=== PATIENT | female | born 1960 | race Caucasian/White ===

== ENCOUNTER 2019-05-08 06:57 | Inpatient (IN) | payer OTHER ==
[~2019-05-08] VITALS: Ht 170.2 cm; Wt 74.8 kg
[2019-05-08 06:57] VITALS: BP 142/93
--- NOTE | 2019-05-08 06:57 | NUR ---
TO BED # 11 BROUGHT IN BY AMBULANCE WITH C/O ABD PAIN, BLADDER INFECTION FOR 2 WEEKS.
[2019-05-08] MEDS ORDERED: NACL 0.9% 1,000 ML IV SCH (07:12)
[2019-05-08] MEDS ORDERED: NACL 0.9% 1,000 ML IV ONE (07:12)
--- NOTE | 2019-05-08 07:46 | NUR ---
angiography technologist at bedside.
[2019-05-08 07:55] LABS: BASOPHILS # (AUTO) 0.1 K/uL (0.00-0.22); BASOPHILS % (AUTO) 0.7 % (0.0-2.0); EOSINOPHILS % (AUTO) 0.2 % (0.0-4.0); HEMATOCRIT 45.7 % (36-48); HEMOGLOBIN 15.1 g/dL (12.0-16.0); LYMPHOCYTES # (AUTO) 2.3 K/uL (2.5-16.5); LYMPHOCYTES % (AUTO) 23.9 % (20.5-51.1); MEAN CORPUSCULAR HEMOGLOBIN 30 pg (27-31); MEAN CORPUSCULAR HGB CONC 33 g/dL (33-37); MEAN CORPUSCULAR VOLUME 90.9 fL (80-94); MONOCYTES # (AUTO) 0.6 K/uL (0.8-1.0); MONOCYTES % (AUTO) 6.3 % (1.7-9.3); NEUTROPHILS # (AUTO) 6.7 K/uL (1.8-7.7); NEUTROPHILS % (AUTO) 68.9 % (42.2-75.2); PLATELET COUNT (AUTO) 260 K/uL (140-450); RED BLOOD CELL COUNT(AUTO) 5.03 MIL/uL (4.20-5.40); WHITE BLOOD COUNT (AUTO) 9.8 K/uL (4.8-10.8)
--- NOTE | 2019-05-08 08:00 | NUR ---
Dr. Esparza is re-evaluating the patient at bedside.
--- NOTE | 2019-05-08 08:06 | NUR ---
Patient taken to CT scan via gurney by [facility].
--- NOTE | 2019-05-08 08:06 | NUR ---
58 Y/O F COMPLAINTS OF BURNING IN OUTER VAGINAL AREA FOR [address] KAYE WITH A VISUAL EXAM OF GENITAL/ AREA. THERE IS NO REDNESS, SWELLING OR OPEN SKIN ON THE OUTER VAGINAL AREA AND INNER THIGH AREA. LOWER ABDOMINAL PAIN, NON RADIATING.
[2019-05-08 08:07] LABS: APPEARANCE,URINE CLEAR (CLEAR); BILIRUBIN,URINE NEGATIVE (NEGATIVE); BLOOD, URINE TRACE-I (NEGATIVE); COLOR,URINE YELLOW (YELLOW); LEUKOCYTE ESTERASE ,URINE NEGATIVE (NEGATIVE); NITRITE, URINE NEGATIVE (NEGATIVE); UGLUCOSE NEGATIVE (NEGATIVE)
[2019-05-08 08:09] LABS: PROTHROMBIN TIME 9.5 secs (10.8-13.4)
--- NOTE | 2019-05-08 08:09 | NUR ---
Called and spoke to Nunu Pino to request medication list. Fax number provided.
[2019-05-08 08:20] LABS: ANION GAP 15.3 (8-16); CARBON DIOXIDE 25.7 mmol/L (21-32); CREATININE 0.7 mg/dL (0.6-1.3)
[2019-05-08 08:21] LABS: RBC,URINE 0-5 /HPF (0-5); WBC,URINE 0-5 /HPF (0-5)
--- NOTE | 2019-05-08 08:22 | NUR ---
US tech at bedside for exam.
[2019-05-08 08:24] LABS: TOTAL BILIRUBIN 0.7 mg/dL (0.0-1.0)
--- NOTE | 2019-05-08 08:32 | NUR ---
Note boone in EDM - 05/08/19 at 0835 by [facility] 58 Y/O F COMPLAINTS OF BURNING IN OUTER VAGINAL AREA FOR [address] KAYE WITH A VISUAL EXAM OF GENITAL/ AREA. THERE IS NO REDNESS, SWELLING OR OPEN SKIN ON THE OUTER VAGINAL AREA AND INNER THIGH AREA.
[2019-05-08] MEDS ORDERED: AMAN100S37 PO (08:45)
[2019-05-08] MEDS ORDERED: CARB1TER9 PO (08:46)
[2019-05-08] MEDS ORDERED: ZOLM5TAB PO (08:46)
[2019-05-08] MEDS ORDERED: diphenhydrAMINE 50 MG/ML VIAL IVP ONE (09:20)
[2019-05-08] MEDS ORDERED: MORPHINE SULFATE 4 MG/ML SYR IVP ONE (09:20)
[2019-05-08] MEDS: NACL 0.9% 1,000 ML IV SCH (09:22)
[2019-05-08] MEDS ORDERED: LORazepam 2 MG/ML VIAL IM/IVP PRN (09:25)
[2019-05-08] MEDS ORDERED: ACETAMINOPHEN 325 MG TAB PO PRN (09:25)
[2019-05-08] MEDS ORDERED: DOCUSATE SODIUM 100 MG GELCAP PO PRN (09:25)
[2019-05-08] MEDS ORDERED: ZOLPIDEM 5 MG TAB PO PRN (09:25)
[2019-05-08] MEDS ORDERED: FAMOTIDINE 20 MG/2 ML VIAL IVP ONE (09:25)
[2019-05-08] MEDS ORDERED: metroNIDAZOLE 500 MG/NS PREMIX 100 ML IV ONE (09:25)
[2019-05-08] MEDS ORDERED: DEXAMETHASONE 10 MG/ML VIAL IVP ONE (09:25)
[2019-05-08] MEDS ORDERED: ONDANSETRON 4 MG/2 ML VIAL IM/IVP PRN (09:25)
[2019-05-08] MEDS ORDERED: MORPHINE SULFATE 2 MG/ML SYR IVP PRN (09:25)
--- NOTE | 2019-05-08 10:30 | NUR ---
RECEIVED PT FROM ED NURSE, PT IS AWAKE, C/O URINARY FREQUENCY, PER ED NURSE PT HAS TO USE THE BEDPAN OFTEN. PT IS REQUESTING HER PARKINSON MEDICATION SOON POSSIBLE. PT IS ON ROOM AIR, SKIN INTACT, IV SITE ON THE R WRIST, 20 G, INFUSING FLAGYL. FALL PRECAUTIONS PUT IN PLACE. CALL LIGHT WITHIN REACH. Addendum: 05/08/19 at 1052 by Silvia Cook RN VS UPON ADMISSION: BP 161/92, O2 97, HR 109, TEMP 98.8, RR 16.
--- NOTE | 2019-05-08 10:44 | NUR ---
Patient will be admitted to care of DR. FIELDS. Admited to TELE. Will go to [facility]. Belongings list completed. Report to MIKE DUKE.
--- NOTE | 2019-05-08 10:51 | NUR ---
PT'S MOTHER IS AT BEDSIDE, TALKING WITH DR YOU AT THIS TIME.
[2019-05-08 11:00] VITALS: BP 161/92
[2019-05-08] MEDS ORDERED: ZOLMITRIPTAN 5 MG PO PRN ×2 (11:00→13:15)
[2019-05-08 11:06] LABS: MAGNESIUM 2.1 mg/dL (1.8-2.4); PHOSPHORUS 3.4 mg/dL (2.5-4.9); THYROID STIMULATING HORMONE 1.84 uIU/mL (0.34-3.74)
[2019-05-08 11:09] LABS: CHOL/HDL RATIO 2.6 (1-4.5)
[2019-05-08] MEDS ORDERED: CARBIDOPA/LEVODOPA 50/200 MG TABER PO SCH (11:12)
[2019-05-08] MEDS ORDERED: CARBIDOPA/LEVODOPA 25/100 MG 1 TAB PO SCH ×2 (11:21→13:00)
--- NOTE | 2019-05-08 11:31 | NUR ---
DC PLANNIN58 Y/O FEMALE FROM [facility], ADMITTED DUE TO BURNING ABDOMINAL PAIN X7 DAYS. INITIAL DIAGNOSIS OF ABDOMINAL PAIN. PAST MEDICAL HISTORY INCLUDE PARKINSON'S DISEASE, MIGRAINE HEADACHES AND UTI. BLOOD AND URINE CULTURES ARE PENDING. CT ABD SHOWED PROXIMAL JEJUNAL ENTERITIS, GALLBLADDER STONE AND/OR SLUDGE AND COLONIC DIVERTICULI. PELVIC US SHOWED ENDOMETRIAL HYPERPLASIA WITH FOCAL FLUID. NO CONSULTS AT THIS TIME. ON SINEMET 25/100MG. DC PLAN PENDING ON PATIENT'S RESPONSE TO TREATMENT. Addendum: 05/09/19 at 1407 by Renetta Colindres CM ON ROCEPHIN 1GM AND FLAGYL 500MG IV Q6H. OB CONSULT WITH DR. ALBERTO. MAXI WILL FOLLOW UP. Addendum: 05/10/19 at 1445 by Renetta Colindres CM CONTACTED [facility] AT [phone], ABLE TO SPEAK TO TY. SHE CONFIRMED THAT THE PATIENT IS THERE RESIDENT AND SHE RECEIVES HOME HEALTH SERVICES WITH [facility]. CONTACTED [facility] AT [phone], ABLE TO SPEAK TO VIRAL (CHARGING PLUG PLACER). SHE CONFIRMED THAT THE PATIENT WAS THEIR PATIENT PRIOR TO HOSPITAL ADMISSION FOR NURSING, PT AND OT SERVICES. SHE PROVIDED ME WITH THEIR FAX NUMBER [phone] TO FAX CLINICALS AND ORDER IF THE PHYSICIAN NEED TO CONTINUE THE SERVICES. DR. YOU AND CHARGE NURSE MADE AWARE.
[2019-05-08] MEDS ORDERED: HYDROmorphone 1 MG/ML AMP IVP PRN (11:45)
--- NOTE | 2019-05-08 12:27 | NUR ---
PER PHARMACY, WE DO NOT CARRY THE TWO MEDICATIONS THAT PT TAKES AT HER FACILITY - ZOLMITRIPTAN AND SINEMET ER. I CALLED PT'S MOTHER MARTHA TO ASK HER IF SHE COULD BRING PT'S MEDS FROM THE FACILITY. SHE SAID SHE WILL GO TRY TO OBTAIN THEM. DR YOU AWARE.
[2019-05-08] MEDS ORDERED: GABAPENTIN 300 MG CAP PO SCH (13:00)
[2019-05-08] MEDS ORDERED: CARBIDOPA PO SCH ×3 (13:04→16:00)
[2019-05-08] MEDS ORDERED: LEVODOPA PO SCH ×3 (13:04→16:00)
--- NOTE | 2019-05-08 13:30 | NUR ---
PT'S MOTHER BROUGHT PT'S SINEMET ER AND ZOLMITRIPTAN FROM PT'S FACILITY. MEDS TAKEN TO PHARMACY. DR AVELINO JACOBSEN.
--- NOTE | 2019-05-08 14:00 | NUR ---
PT'S BP IS 132/85 AT THIS TIME, PT NOT C/O ANY PAIN. DR YOU IS AWARE
--- NOTE | 2019-05-08 15:00 | NUR ---
CLARIFIED W/ PT HOW SHE TAKES HER SINEMET ER. SHE SAID SHE TAKES 6 TABS PER DAY, EVERY 3 HOURS. HER SINEMET ADMINISTRATION SCHEDULE IS FOLLOWS: 0600, 0900, 1200, 1500, 1800, AND 2100. MANUEL PHARMACIST IS AWARE, AND WILL CREATE AN " INDICATED" IMPLEMENTATION SPECIALIST PAYROLL ORDER FOR SINEMET ER. WILL ENDORSE TO THE HELP DESK SUPERVISOR NURSE.
[2019-05-08 16:00] VITALS: BP 131/73
[2019-05-08] MEDS: LEVODOPA PO SCH ×2 (18:25→21:01)
[2019-05-08] MEDS: CARBIDOPA PO SCH ×2 (18:25→21:01)
--- NOTE | 2019-05-08 19:18 | NUR ---
PT ENDORSED TO GENERATOR WORKER NURSE WILLIAM IN STABLE CONDITION. WILLIAM IS AWARE OF PT'S SINEMET ADMINISTRATION SCHEDULE.
--- NOTE | 2019-05-08 19:19 | NUR ---
RECEIVED BEDSIDE REPORT FROM DAY RN LEILANI. PT IS AAO X4 ON RA RESPIRATIONS ARE EQUAL AND UNLABORED. DR ALBERTO IS AT BEDSIDE. SKIN IS INTACT PER RN. ABLE TO MAKE NEEDS KNOWN. USES BEDPAN. IV ON R WRIST 20G NS @ 60M/H. PER DAY RN PT HOME MEDICATION SINEMET Q3H : 0600,9AM 12, 1500,1800 2100. POC DISCUSSED WITH PT. CALL LIGHT IS WITHIN REACH. WILL CONTINUE TO MONITOR
[2019-05-08 20:00] VITALS: BP 104/66
--- NOTE | 2019-05-08 21:01 | NUR ---
VSS, MARIA VICTORIA SINEMET GIVEN PER ORDERS. PT TOLERATED WELL. ALL NEEDS MET AT THIS TIME. CALL LIGHT IS WITHIN REACH.
[2019-05-08 21:16] LABS: BARBITURATE, URINE NEG. ng/ml (NEG <=200); BENZODIAZEPINE, URINE NEG. ng/mL (NEG <=200); CANNABINOID, URINE NEG. ng/mL (NEG <=50); COCAINE, URINE NEG. ng/mL (NEG <=300); OPIATE, URINE NEG. ng/mL (NEG <=2000); PHENCYCLIDINE SCREEN,URINE NEG. ng/mL (NEG <=25)
--- NOTE | 2019-05-08 22:17 | NUR ---
PT IS SLEEPING COMFORTABLY IN BED. CHEST RISE AND FALL. NO S/S OF DISTRESS
[2019-05-09] VITALS: BP 105/64
--- NOTE | 2019-05-09 | NUR ---
VITAL SIGNS ARE WITHIN NORMAL LIMITS. NO S/S OF DISTRESS. CALL LIGHT IS WITHIN REACH
[2019-05-09] MEDS: NACL 0.9% 1,000 ML IV SCH ×2 (01:25→17:45)
--- NOTE | 2019-05-09 01:30 | NUR ---
ASSISTED PT TO BEDPAN. ALL NEEDS MET AT THIS TIME. CALL LIGHT IS WITHIN REACH.
[2019-05-09 04:00] VITALS: BP 104/62
--- NOTE | 2019-05-09 04:00 | NUR ---
VITAL SIGNS ARE WITHIN NORMAL LIMITS. ALL NEEDS MET AT THIS TIME. CALL LIGHT IS WITHIN REACH. WILL CONTINUE TO MONITOR.
[2019-05-09] MEDS: CARBIDOPA PO SCH ×5 (06:20→20:21)
[2019-05-09] MEDS: HYDROcodone/APAP 5/325 MG 1 TAB TAB PO PRN (06:20)
[2019-05-09] MEDS: LEVODOPA PO SCH ×5 (06:20→20:21)
--- NOTE | 2019-05-09 07:27 | NUR ---
GAVE BEDSIDE REPORT TO DAY RN. PT ENDORSED IN STABLE CONDITION.
--- NOTE | 2019-05-09 07:41 | NUR ---
RECEIVED PT FROM SUPERVISOR BEET END NURSE FOR CONTINUITY OF CARE. PT IS AAOX3, COOPERATIVE BUT WITHDRAWN. PT IS DNR. PT ON RA SATING 97%. SKIN IS INTACT. PT BEDBOUND WITHOUT WALKER. BEDPAN USED FOR SAFETY. PT HAS IV IN THE RIGHT WRIST 20G INFUSING NS@60ML/HR. EXPLAINED POC TO PT AND PT VERBALIZED UNDERSTANDING. ALL NEEDS MET. WILL CONTINUE TO ROUND FREQUENTLY ON PT. BED IN LOW POSITION, CALL LIGHT WITHIN REACH. WILL ROUND FREQUENTLY ON PT.
[2019-05-09 08:00] VITALS: BP 124/81
[2019-05-09 08:01] LABS: BASOPHILS % (AUTO) 0.3 % (0.0-2.0); HEMATOCRIT 41.9 % (36-48); HEMOGLOBIN 13.7 g/dL (12.0-16.0); LYMPHOCYTES # (AUTO) 2.3 K/uL (2.5-16.5); LYMPHOCYTES % (AUTO) 21.7 % (20.5-51.1); MEAN CORPUSCULAR HEMOGLOBIN 30 pg (27-31); MEAN CORPUSCULAR HGB CONC 33 g/dL (33-37); MEAN CORPUSCULAR VOLUME 91.8 fL (80-94); MONOCYTES # (AUTO) 0.8 K/uL (0.8-1.0); MONOCYTES % (AUTO) 7.4 % (1.7-9.3); NEUTROPHILS # (AUTO) 7.4 K/uL (1.8-7.7); NEUTROPHILS % (AUTO) 70.6 % (42.2-75.2); PLATELET COUNT (AUTO) 228 K/uL (140-450); RED BLOOD CELL COUNT(AUTO) 4.57 MIL/uL (4.20-5.40); RED CELL DISTRIBUTION WIDTH 14.9 % (11.6-13.7); WHITE BLOOD COUNT (AUTO) 10.5 K/uL (4.8-10.8)
[2019-05-09 08:18] LABS: ANION GAP 15.1 (8-16); CARBON DIOXIDE 24.1 mmol/L (21-32); CREATININE 0.7 mg/dL (0.6-1.3); POTASSIUM 4.2 mmol/L (3.5-5.1)
--- NOTE | 2019-05-09 08:29 | NUR ---
PATIENT HAS BEEN SCREENED AND CATEGORIZED MODERATE NUTRITION RISK. PATIENT WILL BE SEEN WITHIN 3-5 DAYS OF ADMISSION. 05/10/19 05/12/[address]
[2019-05-09] MEDS: GABAPENTIN 300 MG CAP PO SCH ×2 (09:00→11:11)
--- NOTE | 2019-05-09 09:32 | NUR ---
ADMINISTERED MORNING MEDS TO PT. PT TOLERATED WELL. ALL NEEDS MET. WILL CONTINUE TO ROUND ON PT.
--- NOTE | 2019-05-09 11:42 | NUR ---
PT RESTING WITH FAMILY AT BEDSIDE. ALL NEEDS MET. WILL CONTINUE TO ROUND FREQUENTLY ON PT.
[2019-05-09 12:00] VITALS: BP 127/77
--- NOTE | 2019-05-09 13:29 | NUR ---
PT SLEEPING IN BED. ALL NEEDS MET. WILL CONTINUE TO ROUND FREQUENTLY ON PT, BED IN LOW POSITION, CALL LIGHT WITHIN REACH.
[2019-05-09] MEDS: metroNIDAZOLE 500 MG/NS PREMIX 100 ML IV SCH ×2 (13:38→20:20)
--- NOTE | 2019-05-09 15:53 | NUR ---
PT RESTING IN BED. ALL NEEDS MET. PT DENIES PAIN OR SOB. WILL CONTINUE TO ROUND FREQUENTLY ON PT. BED IN LOW POSITION, CALL LIGHT WITHIN REACH.
[2019-05-09 16:00] VITALS: BP 114/70
--- NOTE | 2019-05-09 17:52 | NUR ---
PT SLEEPING. ALL NEEDS MET.
[2019-05-09] MEDS ORDERED: MELATONIN 3 MG TAB PO PRN (18:10)
--- NOTE | 2019-05-09 19:43 | NUR ---
ENDORSED PT TO CARDIO CLINICIAN FOR CONTINUITY OF CARE. PT IN STABLE CONDITION AT THIS TIME.
--- NOTE | 2019-05-09 19:45 | NUR ---
RECEIVED REPORT FROM AM SHIFT NURSE DANE FOR CONTINUITY OF CARE. PATIENT ALERT AND ORIENTED X3. NO APPARENT DISTRESS NOTED. WITH PIV ON RIGHT WRIST 20G. WILL CONTINUE TO MONITOR.
[2019-05-09 20:00] VITALS: BP 99/58
--- NOTE | 2019-05-09 21:40 | NUR ---
ASSISTED PATIENT TO BEDPAN. NO APPARENT DISTRESS NOTED. BED ON LOW POSITION. BED ALARM ON. NO APPARENT DISTRESS NOTED. WILL CONTINUE TO MONITOR.
--- NOTE | 2019-05-09 23:40 | NUR ---
ASSISTED PATIENT TO BEDPAN. NO APPARENT DISTRESS NOTED. WILL CONTINUE TO MONITOR.
[2019-05-10] VITALS: BP 126/85
[2019-05-10] MEDS: CARBIDOPA PO SCH ×7 (00:21→20:41)
[2019-05-10] MEDS: LEVODOPA PO SCH ×7 (00:21→20:41)
--- NOTE | 2019-05-10 01:35 | NUR ---
PATIENT ASLEEP IN BED. VISIBLE CHEST RISE AND FALL NOTED. NO APPARENT DISTRESS NOTED. WILL CONTINUE TO MONITOR.
--- NOTE | 2019-05-10 03:30 | NUR ---
ASSISTED PATIENT TO BEDPAN. NO DISTRESS NOTED. WILL CONTINUE TO MONITOR.
[2019-05-10 04:00] VITALS: BP 96/55
[2019-05-10] MEDS: metroNIDAZOLE 500 MG/NS PREMIX 100 ML IV SCH ×3 (05:07→20:17)
--- NOTE | 2019-05-10 05:25 | NUR ---
PATIENT ASLEEP IN BED. NO APPARENT DISTRESS NOTED. WILL CONTINUE TO MONITOR.
--- NOTE | 2019-05-10 07:15 | NUR ---
ENDORSED TO AM SHIFT IN STABLE CONDITION FOR CONTINUITY OF CARE.
--- NOTE | 2019-05-10 07:46 | NUR ---
Received report from hourly shift manager nurse. Pt is in stable condition. Call light in reach.
[2019-05-10 08:00] VITALS: BP 111/70
[2019-05-10] MEDS ORDERED: MORPHINE SULFATE 2 MG/ML SYR IVP PRN (09:05)
[2019-05-10] MEDS: GABAPENTIN 300 MG CAP PO SCH ×3 (09:07→16:13)
--- NOTE | 2019-05-10 10:00 | NUR ---
Pt is resting in bed. Pt is in stable condition. Call light in reach.
[2019-05-10] MEDS ORDERED: HYDROcodone/APAP 5/325 MG 1 TAB TAB PO PRN (10:35)
[2019-05-10] MEDS: HYDROcodone/APAP 5/325 MG 1 TAB TAB PO PRN ×2 (10:35→18:03)
[2019-05-10] MEDS ORDERED: KETOROLAC 30 MG/ML VIAL IVP SCH (11:00)
[2019-05-10 11:23] VITALS: BP 111/70
--- NOTE | 2019-05-10 11:24 | NUR ---
CALLED [facility] TEL# [phone], SPOKE WITH MANUEL REGARDING PT'S DISCHARGE PLAN FOR TODAY, STATED THEIR NURSE WILL GIVE ME A CALL BACK FOR ETA. JEANNE-RN ASSIGNED MADE AWARE
[2019-05-10 12:00] VITALS: BP 116/76
--- NOTE | 2019-05-10 12:00 | NUR ---
Pt is resting in bed. Pt is in stable condition. Call light in reach.
--- NOTE | 2019-05-10 15:00 | NUR ---
Pt is resting in bed. Pt is in stable condition. Call light in reach.
[2019-05-10 16:00] VITALS: BP 142/93
--- NOTE | 2019-05-10 18:00 | NUR ---
Pt is resting in bed. Pt is in stable condition. Call light in reach.
--- NOTE | 2019-05-10 19:29 | NUR ---
Shift report given to hourly shift nurse. Pt is in stable condition. Call light in reach.
--- NOTE | 2019-05-10 19:30 | NUR ---
RECEIVED BEDSIDE REPORT FROM AM SHIFT RN JEANNE, FOR PT'S CONTINUITY OF CARE. PT IS LYING DOWN, AWAKE, ON ROOM AIR, HAS RIGHT HAND 22G WITH NS AT 10 ML/HR, DENIES ANY PAIN AT THIS TIME. PT DOES NOT WANT AN IV ACCESS, STATES IT MAKES HER PEE CONSTANTLY. PT TEACHING GIVEN REGARDING IMPORTANCE OF IV ACCESS, PT VERBALIZED UNDERSTANDING. EXPLAINED TO PT THE ELECTRICIAN WIRING ROUTINE, PT VERBALIZED UNDERSTANDING. FALL PRECAUTION IN PLACE. CALL LIGHT IS WITHIN REACH. WILL MONITOR PT THROUGHOUT THE SHIFT.
--- NOTE | 2019-05-10 20:17 | NUR ---
ADMINISTERED SCHEDULED IV ABX MEDICATION ORDERED. ASSISTED PT TO BEDPAN TO VOID. PT TOLERATED IT WELL. WILL CONTINUE TO MONITOR THE PT.
--- NOTE | 2019-05-10 20:41 | NUR ---
ADMINISTERED SCHEDULED PO MEDICATION ORDERED. PT KNOWLEDGEABLE REGARDING MEDICATION. PT TOLERATED IT WELL.
--- NOTE | 2019-05-10 22:00 | NUR ---
MADE ROUNDS. PT ASLEEP WITH NO SIGNS OF DISTRESS. NOTIFIED MD RESIDENT FOR PROCEDURE REQUESTED BY DR. ALBERTO, AND CONSENT NEEDED TO BE SIGNED. PER MD, WILL TALK TO PT IN A.M.
[2019-05-11] VITALS: BP 135/85
--- NOTE | 2019-05-11 00:05 | NUR ---
VS CHECKED AND CHARTED. ADMINISTERED SCHEDULED PO MEDICATION ORDERED. PT TOLERATED IT WELL. ASSISTED PT TO BEDPAN FOR VOIDING.
[2019-05-11] MEDS: LEVODOPA PO SCH (01:20)
[2019-05-11] MEDS: CARBIDOPA PO SCH (01:20)
--- NOTE | 2019-05-11 02:30 | NUR ---
PT WAS ASSISTED TO BEDPAN BY PUMP ASSEMBLER. DENIES ANY PAIN OR DISTRESS. WILL CONTINUE TO MONITOR PT
--- NOTE | 2019-05-11 04:42 | NUR ---
PT LYING DOWN ASLEEP WITH NO SIGNS OF DISTRESS. WILL CONTINUE TO MONITOR PT.
[2019-05-11] MEDS: metroNIDAZOLE 500 MG/NS PREMIX 100 ML IV SCH ×2 (05:41→12:44)
[2019-05-11] MEDS: HYDROcodone/APAP 5/325 MG 1 TAB TAB PO PRN ×2 (05:51→10:02)
--- NOTE | 2019-05-11 05:51 | NUR ---
ASSISTED PT TO BEDPAN. PT C/O LOWER ABD PAIN 12/27. ADMINISTERED PRN PO PAIN MEDICATION ORDERED. PT TEACHING GIVEN. WILL ENDORSE PT TO AM SHIFT RN FOR PT'S CONTINUITY OF CARE.
--- NOTE | 2019-05-11 06:29 | NUR ---
PT C/O INCREASING ABD PAIN 02/27, REQUESTED FOR ANOTHER PAIN MEDICATION. ADMINISTERED PRN IVP PAIN MEDICATION ORDERED. PT MADE COMFORTABLE, NEEDS ARE MET.WILL ENDORSE TO AM SHIFT RN FOR PT'S CONTINUITY OF CARE.
[2019-05-11 06:54] LABS: ANION GAP 13.3 (8-16); CARBON DIOXIDE 25.9 mmol/L (21-32); CREATININE 0.6 mg/dL (0.6-1.3); POTASSIUM 4.2 mmol/L (3.5-5.1)
--- NOTE | 2019-05-11 07:10 | NUR ---
RECEIVED PT FROM NIGHT NURSE. PT AWAKE IN BED AAOX3. PT DENIES PAIN AT THIS TIME. SKIN INTACT. IV SITE ASYMPTOMATIC AND PATENT. L HAND 22G TKO. RESPIRATIONS EVEN AND UNLABORED ON ROOM AIR. BED IN LOW POSITION. SAFETY MEASURES IN PLACE. CALL LIGHT WITHIN REACH. WILL CONTINUE TO MONITOR.
[2019-05-11 07:21] LABS: BASOPHILS % (AUTO) 0.4 % (0.0-2.0); EOSINOPHILS # (AUTO) 0.1 K/uL (0-0.4); EOSINOPHILS % (AUTO) 1.3 % (0.0-4.0); HEMOGLOBIN 14.4 g/dL (12.0-16.0); LYMPHOCYTES # (AUTO) 2.8 K/uL (2.5-16.5); LYMPHOCYTES % (AUTO) 36.7 % (20.5-51.1); MEAN CORPUSCULAR HEMOGLOBIN 30 pg (27-31); MEAN CORPUSCULAR HGB CONC 34 g/dL (33-37); MEAN CORPUSCULAR VOLUME 90.4 fL (80-94); MONOCYTES # (AUTO) 0.7 K/uL (0.8-1.0); MONOCYTES % (AUTO) 9.1 % (1.7-9.3); NEUTROPHILS % (AUTO) 52.5 % (42.2-75.2); PLATELET COUNT (AUTO) 212 K/uL (140-450); RED BLOOD CELL COUNT(AUTO) 4.76 MIL/uL (4.20-5.40); WHITE BLOOD COUNT (AUTO) 7.7 K/uL (4.8-10.8)
[2019-05-11 08:00] VITALS: BP 124/85
--- NOTE | 2019-05-11 08:42 | NUR ---
MEDICATIONS ADMINISTERED PER ORDER. PT TOLERATED WELL. LEVODOPA/CARBIDOPA ADMINISTERED AT THIS TIME. WILL CONTINUE TO MONITOR.
[2019-05-11] MEDS: GABAPENTIN 300 MG CAP PO SCH ×3 (08:46→16:47)
--- NOTE | 2019-05-11 09:29 | NUR ---
ATTEMPTED EKG BUT DUE TO INTERFERENCE FROM A COLOR TECHNICIAN UNABLE TO COMPLETE EKG WITHOUT ARTIFACT. NURSE AND OR NURSE MADE AWARE.
--- NOTE | 2019-05-11 11:14 | NUR ---
MEDICATIONS ADMINISTERED PER ORDER. PT TOLERATED WELL. NO DISTRESS NOTED. CALL LIGHT WITHIN REACH. WILL CONTINUE TO MONITOR.
--- NOTE | 2019-05-11 13:25 | NUR ---
PT TRANSPORTED OFF UNIT TO OR FOR HYSTEROSCOPY PROCEDURE
[2019-05-11] MEDS ORDERED: PROPOFOL 200 MG/20 ML VIAL IV ONE (13:27)
[2019-05-11] MEDS ORDERED: SEVOFLURANE 250 ML BTL INH ONE (13:27)
[2019-05-11] MEDS ORDERED: LIDOCAINE 2% 100 MG/5 ML SYR IVP ONE (13:27)
[2019-05-11] MEDS ORDERED: MIDAZOLAM 2 MG/2 ML VIAL ONE (13:34)
--- NOTE | 2019-05-11 13:44 | NUR ---
05/11/19 RD INITIAL ASSESSMENT COMPLETED PLEASE REFER TO NUTRITION ASSESSMENT UNDER CARE ACTIVITY FOR ESTIMATED NUTRITIONAL NEEDS. 1. CONTINUE NPO TOLERATED 2. IF/WHEN MEDICALLY APPROPRIATE TO BEGIN NUTRITION, CONSIDER ADVANCE DIET TOLERATED TO CARDIAC. 3. RD TO FOLLOW-UP 5-7 DAYS, LOW RISK XAVIER KAM, RD
[2019-05-11] MEDS ORDERED: ACET-9525 PO (13:58)
[2019-05-11] MEDS ORDERED: GABA-638 PO ×2 (13:58→17:00)
[2019-05-11] MEDS ORDERED: HYDROmorphone 1 MG/ML AMP IVP PRN (14:00)
[2019-05-11] MEDS ORDERED: ONDANSETRON 4 MG/2 ML VIAL IVP PRN (14:00)
[2019-05-11] MEDS ORDERED: LACT1CAP59 PO ×2 (14:04→17:01)
[2019-05-11] MEDS ORDERED: SULF-59 PO ×3 (14:04→19:12)
[2019-05-11] MEDS ORDERED: BUPIVACAINE-MPF 0.25% 30 ML VIAL INJ ONE (14:10)
[2019-05-11] MEDS ORDERED: CELE100C PO ×3 (14:21→19:12)
[2019-05-11] MEDS ORDERED: DOCU-299 PO ×3 (14:22→19:12)
[2019-05-11] MEDS: HYDROmorphone PFS 2 MG/ML SYR ONE ×2 (15:05→15:20)
--- NOTE | 2019-05-11 15:13 | NUR ---
ATTEMPTED TO CALL [facility] AT [phone] TIMES. NO ANSWER. CALLED TO AGAIN. WILTON CALLED SHE SAID TO CALL PATIENTS MOM FIRST. IF PATIENTS MOM IS UNABLE TO PICK HER UP THEN THEY WILL ARRANGE TRANSPORT.
--- NOTE | 2019-05-11 15:50 | NUR ---
PT RETURNS TO UNIT FROM OR IN STABLE CONDITION. VITAL SIGNS MONITORED AT THIS TIME. NO DISTRESS NOTED. PT DENIES PAIN. WILL CONTINUE TO MONITOR.
[2019-05-11 16:00] VITALS: BP 106/64
--- NOTE | 2019-05-11 16:51 | NUR ---
MEDICATIONS ADMINISTERED PER ORDER. PT TOLERATED WELL. NO DISTRESS NOTED. PT DENIES PAIN. CALL LIGHT WITHIN REACH. SAFETY MEASURES IN PLACE. WILL CONTINUE TO MONITOR.
--- NOTE | 2019-05-11 17:12 | NUR ---
CALLED [facility] AT THIS TIME AND GAVE REPORT TO WILTON TO TRANSFER PT TO THEIR FACILITY.
[2019-05-11 17:14] VITALS: BP 106/64
--- NOTE | 2019-05-11 19:10 | NUR ---
PT DISCHARGED AT THIS TIME. FOLLOW UP, DISCHARGE AND MEDICATION EDUCATION GIVEN, VERBALIZED UNDERSTANDING. DISCHARGE PAPERWORK SIGNED BY MOTHER OF PT. REFUSED PNA AND FLU VACCINE. SKIN INTACT. RESPIRATIONS EVEN AND UNLABORED ON ROOM AIR. VITAL SIGNS STABLE. PT DENIES PAIN. IV SITE REMOVED WITH MINIMAL BLOOD LOSS AND LUMEN INTACT. BELONGINGS VERIFIED AND RETURNED TO PT. ID BANDS REMOVED. PT ESCORTED OFF UNIT IN WHEELCHAIR AND LEFT IN PRIVATE VEHICLE ACCOMPANIED BY HER MOTHER AND FATHER, DISCHARGED TO [facility] IN [place].
[2019-05-11] MEDS ORDERED: GABA300C PO (19:12)
[2019-05-11] MEDS ORDERED: LACT-2 (19:12)
== END 2019-05-11 19:00 | DRG 744 ==
LOC: MED 06:57 → MTU 09:25
PROVIDERS: ADMIT General Practice; ATTEND General Practice
PROC: 0UDB8ZZ Extraction of Endometrium, Via Natural or Artificial Opening Endoscopic (ICD-10-PCS; principal; 2019-05-11 13:30)
DX: N87.9 Dysplasia of cervix uteri, unspecified (principal); R53.2 Functional quadriplegia; N39.0 Urinary tract infection, site not specified; G20 Parkinson's disease; N71.9 Inflammatory disease of uterus, unspecified; G43.909 Migraine, unspecified, not intractable, without status migrainosus; I10 Essential (primary) hypertension; E78.5 Hyperlipidemia, unspecified; K59.00 Constipation, unspecified; K57.30 Diverticulosis of large intestine without perforation or abscess without bleeding; K52.89 Other specified noninfective gastroenteritis and colitis
CPT/HCPCS: 36415; 71045; 76856; 80048; 80053; 80305; 81001; 82150; 83036; 83605; 83690; 83735; 84100; 84134; 84443; 84484; 85025; 85610; 85730; 87040; 87081; 87086; 87186; 88305; 93970; 96361; 96365; 96375; 97110; 97116; 97161-GP; 97530; 99285; J0696; J1050; J1100; J1170; J1200; J1885; J2001; J2250; J2270; J2704; J3490; J7030; J7060; Q0092

== ENCOUNTER 2019-05-13 06:35 | Inpatient (IN) | payer OTHER ==
[~2019-05-13] VITALS: Ht 170.2 cm; Wt 72.6 kg
[2019-05-13 06:35] VITALS: BP 150/98
[~2019-05-13 06:35] MED LIST: ACET-9525 PO; CARB1TER9 PO; CELE100C PO; DOCU-299 PO; GABA300C PO; LACT-2; SULF-59 PO; ZOLM5TAB PO
--- NOTE | 2019-05-13 06:35 | NUR ---
TO BED #04 BROUGHT IN [facility] FOR MEDICAL EVALUATION OF UTI, WHEEL CHAIR BOUND , NON AMBULATORY
--- NOTE | 2019-05-13 06:45 | NUR ---
PATIENT PRESENTS TO ED WITH BROUGHT IN BY [facility] FROM [facility] , FOR MEDICAL EVALUATION FOR UTI,ADMITTED LAST 05.08,AND D/C 05.11.2019, NON AMBULATORY. PT STATES BURNING SENSATION WHEN URINATING. PT ABLE TO USE BEDPAN. PT STATES DOES NOT LIKE LIVING AT [facility], PT STATES THEY TREAT HER BAD. DENIES N/V/D; SKIN IS PINK/WARM/DRY; AAOX4 ; LUNGS CLEAR BL; HR EVEN AND REGULAR; PT DENIES ANY FEVER, CP, SOB, OR COUGH AT THIS TIME; PATIENT STATES PAIN OF 0/10 AT THIS TIME; VSS; PATIENT POSITIONED FOR COMFORT; HOB ELEVATED; BEDRAILS UP X2; BED DOWN. ER MD MADE AWARE OF PT STATUS.
--- NOTE | 2019-05-13 07:10 | NUR ---
RECIEVED REPORT FROM PANKAJ MCKEON
[2019-05-13] MEDS ORDERED: NACL 0.9% 500 ML IV SCH (07:11)
--- NOTE | 2019-05-13 07:19 | NUR ---
a&p technician at bedside.
[2019-05-13] MEDS ORDERED: MELA3TAB56 PO (07:22)
[2019-05-13] MEDS ORDERED: DIPH25CA86 PO (07:22)
[2019-05-13] MEDS ORDERED: AMAN100S37 PO (07:22)
--- NOTE | 2019-05-13 07:24 | NUR ---
Dr. yLnn is evaluating the patient at bedside.
--- NOTE | 2019-05-13 07:35 | NUR ---
# 16 FR Najera catheter with 10 ml utilizing sterile technique. Immediate return of 100 ml CLEAR urine noted. Bedside drainage bag placed below level of bladder. Urine sample collected and sent to lab. Pt tolerated procedure well.
[2019-05-13] MEDS ORDERED: CARBIDOPA/LEVODOPA 50/200 MG TABER PO SCH (08:00)
[2019-05-13] MEDS ORDERED: HYDROmorphone PFS 2 MG/ML SYR IVP ONE (08:00)
[2019-05-13 08:19] LABS: BASOPHILS # (AUTO) 0.1 K/uL (0.00-0.22); BASOPHILS % (AUTO) 0.8 % (0.0-2.0); EOSINOPHILS % (AUTO) 0.4 % (0.0-4.0); HEMATOCRIT 45.3 % (36-48); HEMOGLOBIN 15.1 g/dL (12.0-16.0); LYMPHOCYTES # (AUTO) 1.6 K/uL (2.5-16.5); LYMPHOCYTES % (AUTO) 16.8 % (20.5-51.1); MEAN CORPUSCULAR HEMOGLOBIN 30 pg (27-31); MEAN CORPUSCULAR HGB CONC 33 g/dL (33-37); MEAN CORPUSCULAR VOLUME 90.4 fL (80-94); MONOCYTES # (AUTO) 0.6 K/uL (0.8-1.0); MONOCYTES % (AUTO) 6.6 % (1.7-9.3); NEUTROPHILS # (AUTO) 7.3 K/uL (1.8-7.7); NEUTROPHILS % (AUTO) 75.4 % (42.2-75.2); PLATELET COUNT (AUTO) 211 K/uL (140-450); RED BLOOD CELL COUNT(AUTO) 5.01 MIL/uL (4.20-5.40); RED CELL DISTRIBUTION WIDTH 14.6 % (11.6-13.7); WHITE BLOOD COUNT (AUTO) 9.7 K/uL (4.8-10.8)
[2019-05-13 08:29] LABS: ALBUMIN 4.2 g/dL (3.4-5.0); ANION GAP 15.8 (8-16); CARBON DIOXIDE 24.4 mmol/L (21-32); CREATININE 0.7 mg/dL (0.6-1.3); POTASSIUM 4.2 mmol/L (3.5-5.1); TOTAL BILIRUBIN 0.5 mg/dL (0.0-1.0)
[2019-05-13 08:46] LABS: BILIRUBIN,URINE NEGATIVE (NEGATIVE); BLOOD, URINE 3+ (NEGATIVE); COLOR,URINE YELLOW (YELLOW); LEUKOCYTE ESTERASE ,URINE NEGATIVE (NEGATIVE); NITRITE, URINE NEGATIVE (NEGATIVE); UGLUCOSE NEGATIVE (NEGATIVE)
[2019-05-13 08:52] LABS: APPEARANCE,URINE HAZY (CLEAR)
[2019-05-13 08:56] LABS: RBC,URINE 20-50 /HPF (0-5); WBC,URINE 0-5 /HPF (0-5)
[2019-05-13 09:04] LABS: PROTHROMBIN TIME 9.3 secs (10.8-13.4)
--- NOTE | 2019-05-13 09:29 | NUR ---
PATIENT OPENS EYES, PERRLA. NON VERBAL, ABLE TO BLINK ON COMMAND SQUEEZE BOTH HANDS WHEN ASKED. ER NOTIFIED AND STATES S/E FROM SINEMET GIVEN AT 0819.
--- NOTE | 2019-05-13 10:02 | NUR ---
PATIENT STATES SHE IS HAVING PAIN 6/10 IN HER "UTERUS". PATIENT REPOSITIONED IN BED. WILL CHECK WITH MD FOR MORE PAIN MEDICATION TO PRESCRIBE.
--- NOTE | 2019-05-13 10:05 | NUR ---
PER DR. ZOILA JUAREZ, PATIENT IS BEING ADMITTED. WILL FOLLOW ADMIT ORDERS FOR PAIN MANAGEMENT.
--- NOTE | 2019-05-13 10:26 | NUR ---
Dr. Solorzano is evaluating the patient at bedside.
[2019-05-13] MEDS ORDERED: DOCUSATE SODIUM 100 MG GELCAP PO PRN (10:45)
[2019-05-13] MEDS ORDERED: HYDROcodone/APAP 7.5/325 MG 1 TAB PO PRN (10:45)
[2019-05-13] MEDS ORDERED: ONDANSETRON 4 MG/2 ML VIAL IM/IVP PRN (10:45)
[2019-05-13] MEDS ORDERED: BISACODYL 5 MG TABEC PO PRN (10:45)
[2019-05-13] MEDS ORDERED: ACETAMINOPHEN 325 MG TAB PO PRN (10:45)
[2019-05-13] MEDS ORDERED: FAMOTIDINE 20 MG/2 ML VIAL IV PRN (10:45)
[2019-05-13 10:50] VITALS: BP 146/89
--- NOTE | 2019-05-13 10:50 | NUR ---
RECEIVED PATIENT/ REPORT FROM ER NURSE, PATIENT IN STABLE CONDITION. WILL COMPLETE ADMIT ASSESSMENT.
--- NOTE | 2019-05-13 11:01 | NUR ---
Patient will be admitted to care of DR AGUILAR. Admited to MED SURG. Will go to [id number]. Belongings list completed. Report to MIKE MUÑOZ.
[2019-05-13 11:28] LABS: BARBITURATE, URINE NEG. ng/ml (NEG <=200); BENZODIAZEPINE, URINE NEG. ng/mL (NEG <=200); CANNABINOID, URINE NEG. ng/mL (NEG <=50); COCAINE, URINE NEG. ng/mL (NEG <=300); OPIATE, URINE NEG. ng/mL (NEG <=2000); PHENCYCLIDINE SCREEN,URINE NEG. ng/mL (NEG <=25)
[2019-05-13 11:39] LABS: FREE T4 (FREE THYROXINE) 1.15 ng/dL (0.76-1.46); PHOSPHORUS 2.7 mg/dL (2.5-4.9); THYROID STIMULATING HORMONE 1.59 uIU/mL (0.34-3.74)
[2019-05-13] MEDS ORDERED: MORPHINE SULFATE 4 MG/ML SYR IVP PRN (11:50)
[2019-05-13 12:00] VITALS: BP 150/96
[2019-05-13] MEDS ORDERED: CELE100C PO (12:19)
[2019-05-13] MEDS ORDERED: GABA300C PO (12:19)
[2019-05-13] MEDS: CARBIDOPA/LEVODOPA 50/200 MG TABER PO SCH ×3 (12:52→20:00)
[2019-05-13] MEDS ORDERED: CELECOXIB 100 MG CAP PO PRN (13:10)
--- NOTE | 2019-05-13 13:15 | NUR ---
PATIENT BACK FROM CT [place], VITALS STABLE, PATIENT IN STABLE CONDITION. SISTER, ARTURO AT THE BEDSIDE. WILL CONTINUE TO MONITOR.
[2019-05-13] MEDS ORDERED: LISINOPRIL 10 MG TAB PO SCH (14:00)
[2019-05-13] MEDS: NACL 0.9% 1,000 ML IV SCH ×2 (14:10)
--- NOTE | 2019-05-13 14:26 | NUR ---
PATIENT AT THE BEDSIDE WITH SISTER, ARTURO, WATCHING TV CALM. NO DISTRESS NOTED. SCHEDULED MEDICATIONS GIVEN AT THIS TIME.
[2019-05-13 16:00] VITALS: BP 124/73
--- NOTE | 2019-05-13 17:12 | NUR ---
PATIENT SLEEPING IN BED, CALM, NO DISTRESS NOTED. WILL CONTINUE TO MONITOR.
--- NOTE | 2019-05-13 19:19 | NUR ---
ENDORSED TO ADMITTING OFFICE ESCORT NURSE. PATIENT IN STABLE CONDITION.
--- NOTE | 2019-05-13 19:20 | NUR ---
RECEIVED PT FROM DAY SHIFT NURSE PT AAOX2 ON BED REST BERNAL CATH DRAINING WELL YELLOW URINE, IV ON RT FA INFUSING WELL NOT DISTRESS NOTED INITIAL ASSESSMENT DONE
[2019-05-13 20:00] VITALS: BP 150/91
[2019-05-13] MEDS: MELATONIN 3 MG TAB PO SCH (21:00)
--- NOTE | 2019-05-13 22:00 | NUR ---
LINEN CHANGED, REPOSITIONED Q2H NOT DISTRESS NOTED BERNAL CATH IN PLACE DRAINING WELL YELLOW URINE
--- NOTE | 2019-05-14 | NUR ---
PT PULL OUT IV AND A NDEW ONE IS INSERTED ON LEFT WRIST GAUGE # 22
[2019-05-14] MEDS: CARBIDOPA/LEVODOPA 50/200 MG TABER PO SCH ×6 (00:48→20:57)
[2019-05-14] MEDS: HYDROcodone/APAP 7.5/325 MG 1 TAB PO PRN ×3 (00:56→20:57)
--- NOTE | 2019-05-14 03:07 | NUR ---
PT SLEEPING WELL AFTER PAIN MEDIC GIVEN
--- NOTE | 2019-05-14 06:08 | NUR ---
SPONGE BATH GIVEN LINENN CHANGED, REPOSITIONED, IV ON LEFT FA INFUSIGN WELL
[2019-05-14 06:19] LABS: BASOPHILS # (AUTO) 0.1 K/uL (0.00-0.22); BASOPHILS % (AUTO) 0.7 % (0.0-2.0); EOSINOPHILS # (AUTO) 0.1 K/uL (0-0.4); EOSINOPHILS % (AUTO) 0.7 % (0.0-4.0); HEMOGLOBIN 13.9 g/dL (12.0-16.0); LYMPHOCYTES # (AUTO) 3.2 K/uL (2.5-16.5); LYMPHOCYTES % (AUTO) 33.1 % (20.5-51.1); MEAN CORPUSCULAR HEMOGLOBIN 30 pg (27-31); MEAN CORPUSCULAR HGB CONC 33 g/dL (33-37); MEAN CORPUSCULAR VOLUME 91.5 fL (80-94); MONOCYTES # (AUTO) 0.7 K/uL (0.8-1.0); MONOCYTES % (AUTO) 7.6 % (1.7-9.3); NEUTROPHILS # (AUTO) 5.5 K/uL (1.8-7.7); NEUTROPHILS % (AUTO) 57.9 % (42.2-75.2); PLATELET COUNT (AUTO) 233 K/uL (140-450); RED BLOOD CELL COUNT(AUTO) 4.59 MIL/uL (4.20-5.40); RED CELL DISTRIBUTION WIDTH 14.9 % (11.6-13.7); WHITE BLOOD COUNT (AUTO) 9.6 K/uL (4.8-10.8)
[2019-05-14 07:06] LABS: ANION GAP 12.9 (8-16); CARBON DIOXIDE 26.2 mmol/L (21-32); CREATININE 0.7 mg/dL (0.6-1.3); POTASSIUM 4.1 mmol/L (3.5-5.1)
--- NOTE | 2019-05-14 07:10 | NUR ---
RECEIVED REPORT FROM NIGHT RN. PATIENT IS CURRENTLY LAYING IN BED, NO SIGNS OF RESP DISTRESS. PATIENT IS DNR, NKA. AAOX2, ON ROOM AIR. PATIENT IS A FALL RISK- WRISTBAND APPLIED, SIGN AT DOOR, YELLOW SOCKS APPLIED. IV TO LEFT FA 22G. PATIENT HAS A F/C PRESENT, DRAINING ADEQUATELY. WILL CONTINUE WITH PLAN OF CARE FOR THE DAY.
[2019-05-14 07:11] LABS: MAGNESIUM 1.9 mg/dL (1.8-2.4); PHOSPHORUS 3.3 mg/dL (2.5-4.9)
[2019-05-14 08:00] VITALS: BP 106/60
[2019-05-14] MEDS: LACTOBACILLUS RHAMNOSUS GG 1 EACH CAP PO SCH (08:17)
[2019-05-14] MEDS: LISINOPRIL 10 MG TAB PO SCH (08:20)
--- NOTE | 2019-05-14 08:21 | NUR ---
ADMINISTERED MORNING MEDICATION. PATIENT TOLERATED WELL. DID NOT ADMINISTER BP MEDICATION FOR BP THIS MORNING OF 106/60
--- NOTE | 2019-05-14 08:28 | NUR ---
PATIENT HAS BEEN SCREENED AND CATEGORIZED HIGH NUTRITION RISK. PATIENT WILL BE SEEN WITHIN 1-2 DAYS OF ADMISSION. 05/14/[address]
[2019-05-14] MEDS: NACL 0.9% 1,000 ML IV SCH ×2 (08:44→19:20)
--- NOTE | 2019-05-14 10:29 | NUR ---
ADMINISTERED MEDICATION FOR PAIN TO GROIN AREA. WILL RE-ASSESS. NO FURTHER COMPLAINTS AT THIS TIME
--- NOTE | 2019-05-14 12:22 | NUR ---
* ST NOTE * Pt seen at bedside. Pt alert, cooperative and engaged throughout session, reporting no c/o pain at this time. Bedside dysphagia and oral mechanism exams completed. See evaluation report for further details. Pt tolerating 4/4 alternating Po trials of regular solid saltine crackers as well as 5/5 alternating PO trials of thin liquid apple juice via a straw, all w/o s/s of aspiration or choking. Pt exhibiting occasional residue on lingua after PO intake of regular solids at this time. Pt education completed re: aspiration precautions and safe swallow compensatory strategies pt could utilize to aid w/swallow function, w/pt demonstrating 100% follow through as trained by clinician. Clinician inquiring as to whether pt would prefer meals to be cut for her in order to aid w/feeding & PO intake, w/pt agreeable. It is thus recommended pt's PO diet consistency be modified to mechanical soft-chopped textures w/thin liquids for all meals, w/pt verbalizing understanding and agreement. No further ST follow up recommended at this time. Pt and caregiver/Nsg Pravin education completed re: results of evaluation; benefits of abiding by aspiration precautions and recommended PO diet consistency; and prognosis for improvement; w/pt and caregiver/Nsg Pravin verbalizing understanding and agreement w/clinician's recommendations. Recommend: - PO DIET CONSISTENCY OF MECHANICAL SOFT-CHOPPED TEXTURES W/THIN LIQUIDS for all meals as is more convenient for resident - MAINTAIN STRICT ASPIRATION PRECAUTIONS DURING PT'S PO INTAKE 2/2 TO PARKINSON'S DISEASE - Pt requires assistance w/feeding - Feeder to REMIND/CUE PT TO SIT UP AT 80-90 DEGREE ANGLE DURING PO INTAKE; EAT/DRINK SLOWLY; ALTERNATE BTWN SOLIDS & LIQUIDS; AND TAKE SMALL BITES/SIPS No further ST follow up recommended at this time. NOMS Level 2 Time In/Out 11:45 - 12:15
--- NOTE | 2019-05-14 13:03 | NUR ---
05/14/19 RD INITIAL ASSESSMENT COMPLETED PLEASE REFER TO NUTRITION ASSESSMENT UNDER CARE ACTIVITY FOR ESTIMATED NUTRITIONAL NEEDS. 1. RECOMMEND MECHANICAL SOFT, 2GM NA DIET TOLERATED 2. RD PROVIDED NUTRITION EDUCATION ON HYPERTENSION. PT ACCEPTED 3. ENCOURAGED INCREASING PO INTAKE 4. PROVIDE FEEDING ASSISTANCE WITH MEALS 5. RD TO FOLLOW-UP 3-5 DAYS, MODERATE RISK XAVIER KAM RD
--- NOTE | 2019-05-14 14:00 | NUR ---
SPOKE TO PATIENTS SISTER ARTURO VIA TELEPHONE AND GAVE BRIEF UPDATES ABOUT PATIENTS PLAN OF CARE
--- NOTE | 2019-05-14 15:56 | NUR ---
ADMINISTERED PM MEDICATION. PATIENT IS RESTING IN BED, NO SIGNS OF DISTRESS. NO COMPLAINTS AT THIS TIME. DENIES PAIN
[2019-05-14 16:00] VITALS: BP 139/89
--- NOTE | 2019-05-14 16:39 | NUR ---
[employer] Nurse Note: [facility] Patient: Ana Contreras : 1960 Age/Sex: 58/F Unit#: [id number] Room/Bed: 121/B User: Steven GORDON Date: 05/14/19 16:33 Type: CM: Discharge Planning Basic Screen: Yes High Risk DC Screen Yes Name: MARTHA GONZALEZ [place] Relationship: MOTHER Pre-Admission Living Arrangements: Other Other: [facility] Prior ADL Needs Assistance Current Home Health Name/Tel: [facility] Current Name/Tel: [facility] Current Hospice Name/Tel: N/A Current Dialysis Name/Tel: N/A Healthcare Decision Maker: Next of Kin Other: MARTHA GONZALEZ Advance Directive No Physician Orders for Life Sustaining Treatment Form No Patient/Family Have Educational Needs No Discipline: Case Mgt/Social Svcs Tentative Discharge Plan/Destination: No Needs Identified Will require assistance post discharge: No Referred to Pole Peeling Machine Operator: No Tentative Discharge Plan Summary: Patient is a 58-year-old female admitted for UTI. Patient has PMHX of hypertension and Parkinson's. Patient was admitted from [facility]. GABRIEL contacted [facility] Director [phone]. Sandra reported that patient has a cognitive impairment. Sandra stated that a meeting conference will be held with patient's family regarding a discussion of if [facility] will be able to accommodate all of patient's needs. GABRIEL will follow up as needed. Signature: MELISA Vang Date: May 14, 2019 Time: 16:37
--- NOTE | 2019-05-14 19:00 | NUR ---
;RECEIVED PT FROM CARMELLA RN PT AAOX2 COOPERATIVE TO FOLLOW COMMANDS IV ON LEFT FA INFUSING WELL, ; BERNAL CATH DRAINING WELL YELLOW URINE, PT REPOSITIONE D INITIAL ASSESSMENT DONE
[2019-05-14 20:00] VITALS: BP 119/79
[2019-05-14] MEDS: MELATONIN 3 MG TAB PO SCH (20:56)
--- NOTE | 2019-05-14 22:00 | NUR ---
AFTER PAIN MEDIC GIVEN PT IS SLEEPING WELL NOT DISTRESS NOTED
[2019-05-15] VITALS: BP 106/62
[2019-05-15] MEDS: CARBIDOPA/LEVODOPA 50/200 MG TABER PO SCH ×8 (00:12→23:06)
--- NOTE | 2019-05-15 02:16 | NUR ---
PT ON CLOSE MONITORING REMAIN STABLE NOT DISTRESS NOTED ON BERNAL CATH DRAINING WELL , PT HAS BEEN REPOSITIONED Q2H
[2019-05-15 05:34] LABS: BASOPHILS # (AUTO) 0.1 K/uL (0.00-0.22); BASOPHILS % (AUTO) 1.4 % (0.0-2.0); EOSINOPHILS # (AUTO) 0.3 K/uL (0-0.4); EOSINOPHILS % (AUTO) 3.2 % (0.0-4.0); HEMATOCRIT 40.7 % (36-48); HEMOGLOBIN 13.5 g/dL (12.0-16.0); LYMPHOCYTES # (AUTO) 2.7 K/uL (2.5-16.5); LYMPHOCYTES % (AUTO) 30.6 % (20.5-51.1); MEAN CORPUSCULAR HEMOGLOBIN 30 pg (27-31); MEAN CORPUSCULAR HGB CONC 33 g/dL (33-37); MEAN CORPUSCULAR VOLUME 91.9 fL (80-94); MONOCYTES # (AUTO) 0.8 K/uL (0.8-1.0); MONOCYTES % (AUTO) 9.6 % (1.7-9.3); NEUTROPHILS # (AUTO) 4.8 K/uL (1.8-7.7); NEUTROPHILS % (AUTO) 55.2 % (42.2-75.2); PLATELET COUNT (AUTO) 214 K/uL (140-450); RED BLOOD CELL COUNT(AUTO) 4.43 MIL/uL (4.20-5.40); RED CELL DISTRIBUTION WIDTH 15.1 % (11.6-13.7); WHITE BLOOD COUNT (AUTO) 8.7 K/uL (4.8-10.8)
--- NOTE | 2019-05-15 05:47 | NUR ---
sponge bath given linen changed, ; repositioned not distress noted
[2019-05-15] MEDS: NACL 0.9% 1,000 ML IV SCH ×3 (06:16→20:26)
--- NOTE | 2019-05-15 06:28 | NUR ---
PT RESTING ON BED NOT DISTRESS NOTED PT WILL BE ENDORSED TO DAY SHIFT NURSE FOR CONTINUE OF CARE
[2019-05-15 06:55] LABS: ANION GAP 12.7 (8-16); CARBON DIOXIDE 27.4 mmol/L (21-32); POTASSIUM 4.1 mmol/L (3.5-5.1)
[2019-05-15 06:56] LABS: CREATININE 0.6 mg/dL (0.6-1.3)
--- NOTE | 2019-05-15 07:28 | NUR ---
REPORT RECEIVED FROM [employer]RARIAN NURSE FOR CONTINUATION OF CARE, DANICA IS SLEEPING IN BED NO DISTRESS NOTED AT THIS TIME. SKIN INTACT, IV PATENT AND FLUSHED WITH NS. WILL CONTINUE TO MONITOR.
[2019-05-15 08:00] VITALS: BP 118/78
[2019-05-15] MEDS: LACTOBACILLUS RHAMNOSUS GG 1 EACH CAP PO SCH (08:16)
[2019-05-15] MEDS: LISINOPRIL 10 MG TAB PO SCH (08:17)
--- NOTE | 2019-05-15 09:30 | NUR ---
PATIENT IS LYING IN BED STARING OUT INTO THE WINDOW, MUMBLED SPEECH, OCCASIONAL CONFUSION, BLANK STARE. PATIENT OBSERVED TO HAVE A BOWEL MOVEMENT. OBSERVED CHEST RISE AND FALL. WILL CONTINUE TO MONITOR. PLAN FOR DISPO TO SNF AT DISCHARGE.
--- NOTE | 2019-05-15 12:00 | NUR ---
PATIENT IS ACCOMPANIED BY HER SISTER AT BEDSIDE, PATIENT PRESENTS IRRITABLE WHEN ALONE, TALKING TO HERSELF OR SOMEONE WHO IS NOT THERE. MEDICATIONS ADMINISTERED, TOLERATED WELL. SHE DEESCALATES WHEN STAFF TALKS WITH HER. SHE IS ENCOURAGED TO EAT HER LUNCH AND EDUCATED ON THE IMPORTANCE OF ADEQUATE NUTRITION. WILL CONTINUE TO MONITOR.
[2019-05-15] MEDS ORDERED: COMMUNICATION ORDER MC PRN (13:35)
[2019-05-15] MEDS ORDERED: NUPLAZID 34 MG PO SCH (14:00)
--- NOTE | 2019-05-15 14:00 | NUR ---
PATIENT IN BED, REPOSITIONED. NO SIGNS OF DISTRESS NOTED AT THIS TIME. OBSERVED CHEST RISE AND FALL. WILL CONTINUE TO MONITOR FOR SAFETY.
[2019-05-15] MEDS: NUPLAZID 34 MG PO SCH (14:14)
[2019-05-15] MEDS ORDERED: LORazepam 2 MG/ML VIAL ONE (15:15)
[2019-05-15] MEDS: LORazepam 2 MG/ML VIAL IM/IVP PRN (15:16)
--- NOTE | 2019-05-15 15:18 | NUR ---
ATIVAN 1MG ADMINISTERED PER ORDER. UNABLE TO PULL FROM PYXIS EVEN THOUGH ITS IN THE eMAR. PT SCREAMING HALLUCINATING THINKS SHES DYING INFORMED DR. YOU AT BEDSIDE
--- NOTE | 2019-05-15 15:20 | NUR ---
DC [age]ANN[age] YRS OLD FEMALE WAS ADMITTED FROM [facility] WITH A DX OF HEMATURIA, LETHARGIC AND GENERALIZE WEAKNESS. 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 CT OF HEAD ORDERED, INITIATED FALL PRECAUTION, PT AND ST EVALUATION , PROGRAM CONTROL ANALYST CONSULT WITH DR ALBERTO FOR UTERUS PAIN AND PSYCH CONSULT WITH DR ODONNELL FOR ANXIETY . DC PLAN TO GO TO SNF PER FAMILY CHOICE FOR PHYSICAL THERAPY. CONTACTED [facility] VISITED PATIENT AND CONFIRMING THAT HE ACCEPTED PT. CM TO FOLLOW Addendum: 05/16/19 at 1157 by Ginna Avila CM DC PLANNING PT IS GOING TO [facility] ROOM [address] ARRANGED TRANSPORT WITH [facility] IN[employer] TIME 2PM NOTIFIED JACOBO MCKEON
[2019-05-15 16:00] VITALS: BP 111/70
[2019-05-15] MEDS ORDERED: diphenhydrAMINE 50 MG/ML VIAL IVP SCH (16:00)
[2019-05-15] MEDS ORDERED: QUEtiapine FUMARATE 25 MG TAB PO PRN (16:45)
--- NOTE | 2019-05-15 17:07 | NUR ---
DANICA TOLERATED A 1X DOSE OF BENADRYL 25 MG IVP. SHE IS RESTING IN BED, BEHAVIOR IS CALM, CONTINUES TO MAKE INCOHERENT STATEMENTS. WILL CONTINUE TO MONITOR.
--- NOTE | 2019-05-15 19:30 | NUR ---
ENDORSED PT TO PM RN PT APPEARS STABLE AND IN NO APPARENT DISTRESS, ALL SAFETY MEASURES ARE IN PLACE
--- NOTE | 2019-05-15 19:30 | NUR ---
ASSUMED CARE OF PATIENT, AWAKE, EATING DINNER. FAMILY AT BEDSIDE. NO DISTRESS. NO COMPLAINS. CALL LIGHT WITHIN REACH.
--- NOTE | 2019-05-15 20:00 | NUR ---
CARE BOARD UPDATED. PERICARE DONE. REPOSITIONED AND COMPLETE BED CHANGE ASSISTED WITH SECURITY CONTROL ROOM OFFICER. CALL LIGHT WITHIN REACH.
[2019-05-15] MEDS: MELATONIN 3 MG TAB PO SCH (20:26)
[2019-05-15] MEDS ORDERED: QUEtiapine FUMARATE 25 MG TAB PO SCH (21:00)
[2019-05-16 00:46] VITALS: BP 110/68
--- NOTE | 2019-05-16 00:47 | NUR ---
AWAKE. BM NOTED, PERICARE BY COMPUTERIZED MACHINE FABRIC CUTTER. REPOSITIONED. VITAL SIGNS STABLE. CALL LIGHT WITHIN REACH. NO COMPLAINS.
[2019-05-16] MEDS: CARBIDOPA/LEVODOPA 50/200 MG TABER PO SCH ×4 (02:17→12:24)
[2019-05-16] MEDS ORDERED: LORazepam 2 MG/ML VIAL ONE (04:21)
[2019-05-16] MEDS: LORazepam 2 MG/ML VIAL IM/IVP PRN (04:26)
--- NOTE | 2019-05-16 04:45 | NUR ---
PERICARE DONE. REPOSITIONED. GETTING AGITATED. ATTEMPTING TO PULL OUT IV AND BERNAL. SNACK GIVEN. ATIVAN GIVEN IV ORDERED. CALL LIGHT WITHIN REACH.
--- NOTE | 2019-05-16 07:05 | NUR ---
RECEIVED PT FROM NIGHT NURSE. PT AAOX3, DENIES PAIN, NO DISTRESS NOTED. RESPIRATIONS EVEN AND UNLABORED ON ROOM AIR, CLEAR BREATH SOUNDS. IV IN PLACE ASYMPTOMATIC AND PATENT INFUSING PER ORDER IN L A 20G. SKIN INTACT. FOLLEY IN PLACE. CALL LIGHT WITHIN REACH. SAFETY MEASURES IN PLACE. BED IN LOW POSITION. WILL CONTINUE TO MONITOR.
[2019-05-16 07:10] LABS: BASOPHILS % (AUTO) 0.5 % (0.0-2.0); EOSINOPHILS # (AUTO) 0.2 K/uL (0-0.4); EOSINOPHILS % (AUTO) 2.5 % (0.0-4.0); HEMOGLOBIN 13.9 g/dL (12.0-16.0); LYMPHOCYTES # (AUTO) 2.7 K/uL (2.5-16.5); LYMPHOCYTES % (AUTO) 29.3 % (20.5-51.1); MEAN CORPUSCULAR HEMOGLOBIN 31 pg (27-31); MEAN CORPUSCULAR HGB CONC 33 g/dL (33-37); MEAN CORPUSCULAR VOLUME 92.1 fL (80-94); MONOCYTES # (AUTO) 0.8 K/uL (0.8-1.0); MONOCYTES % (AUTO) 8.1 % (1.7-9.3); NEUTROPHILS # (AUTO) 5.6 K/uL (1.8-7.7); NEUTROPHILS % (AUTO) 59.6 % (42.2-75.2); PLATELET COUNT (AUTO) 196 K/uL (140-450); RED BLOOD CELL COUNT(AUTO) 4.56 MIL/uL (4.20-5.40); RED CELL DISTRIBUTION WIDTH 15.1 % (11.6-13.7); WHITE BLOOD COUNT (AUTO) 9.3 K/uL (4.8-10.8)
[2019-05-16 07:22] LABS: ANION GAP 14.1 (8-16); CARBON DIOXIDE 24.5 mmol/L (21-32); CREATININE 0.6 mg/dL (0.6-1.3); POTASSIUM 3.6 mmol/L (3.5-5.1)
--- NOTE | 2019-05-16 07:27 | NUR ---
ENDORSED CARE AT BEDSIDE WITH ASYA MCKEON, PATIENT IN STABLE CONDITION.
[2019-05-16 08:00] VITALS: BP 119/70
[2019-05-16] MEDS: LACTOBACILLUS RHAMNOSUS GG 1 EACH CAP PO SCH (08:28)
[2019-05-16] MEDS: NUPLAZID 34 MG PO SCH (08:29)
[2019-05-16] MEDS: LISINOPRIL 10 MG TAB PO SCH (08:29)
--- NOTE | 2019-05-16 08:33 | NUR ---
MEDICATIONS ADMINISTERED PER ORDER. PT TOLERATED WELL. NO DISTRESS NOTED. SAFETY MEASURES IN PLACE. WILL CONTINUE TO MONITOR.
[2019-05-16] MEDS ORDERED: [UNRECOGNIZED DRUG - OTHER] PO (10:03)
[2019-05-16] MEDS ORDERED: CARB1TER9 PO (10:03)
[2019-05-16] MEDS ORDERED: QUET25TA46 PO ×2 (10:03)
--- NOTE | 2019-05-16 10:41 | NUR ---
PT REPOSITIONED AND COVERED WITH WARM BLANKET. DENIES PAIN. NO DISTRESS NOTED. SAFETY MEASURES IN PLACE. WILL CONTINUE TO MONITOR.
[2019-05-16] MEDS: NACL 0.9% 1,000 ML IV SCH (11:20)
--- NOTE | 2019-05-16 12:29 | NUR ---
MEDICATIONS ADMINISTERED PER ORDER. PT TOLERATED WELL. NO DISTRESS NOTED. WILL CONTINUE TO MONITOR.
[2019-05-16 13:05] VITALS: BP 121/70
[2019-05-16] MEDS ORDERED: ZOLM5TAB PO (14:07)
--- NOTE | 2019-05-16 14:15 | NUR ---
PT DISCHARGED AT THIS TIME. FOLLOWUP, DISCHARGE AND MEDICATION TEACHING GIVEN TO MUKESH, LUIZ SISTER OVER THE PHONE. VERBALIZED UNDERSTANDING. DISCHARGE PAPERWORK SIGNED BY PT. IV SITE REMOVED WITH MINIMAL BLOOD LOSS AND LUMEN INTACT. ID BANDS REMOVED. BELONGINGS VERIFIED AND RETURNED TO PT. RESPIRATIONS EVEN AND UNLABORED ON ROOM AIR, CLEAR BREATH SOUNDS. DENIES PAIN, NO DISTRESS NOTED. SKIN INTACT. VITAL SIGNS STABLE. PT REFUSED PNA AND FLU VACCINE. PT TRANSFERRED TO [facility]IA [facility].
== END 2019-05-16 14:15 | DRG 73 ==
LOC: MED 06:35 → MTU 10:12 → UNDODISIN 10:20
PROVIDERS: ADMIT General Practice; ATTEND General Practice
DX: G90.8 Other disorders of autonomic nervous system (principal); R53.2 Functional quadriplegia; E44.0 Moderate protein-calorie malnutrition; N39.0 Urinary tract infection, site not specified; I10 Essential (primary) hypertension; G20 Parkinson's disease; Z66 Do not resuscitate; E78.5 Hyperlipidemia, unspecified; F29 Unspecified psychosis not due to a substance or known physiological condition; G30.9 Alzheimer's disease, unspecified; F02.80 Dementia in other diseases classified elsewhere, unspecified severity, without behavioral disturbance, psychotic disturbance, mood disturbance, and anxiety; Z68.25 Body mass index [BMI] 25.0-25.9, adult; Z98.51 Tubal ligation status; Z82.61 Family history of arthritis
CPT/HCPCS: 36415; 51702; 70450; 71045; 76770; 80048; 80053; 80305; 81001; 82140; 82150; 82272; 83036; 83605; 83615; 83690; 83735; 83880; 84100; 84439; 84443; 84484; 84550; 85025; 85610; 85730; 87015; 87040; 87045; 87070; 87081; 87086; 87177; 89055; 92610; 93005; 93880; 96361; 96374; 97110; 97116; 97161-GP; 97530; 99285; C1758; J0696; J1170; J1200; J2060; J7030; J7060; Q0092

== ENCOUNTER 2021-01-10 10:49 | Emergency (ER) | payer OTHER ==
[~2021-01-10] VITALS: Ht 170.2 cm; Wt 77.1 kg
[2021-01-10 10:49] VITALS: BP 101/69
[~2021-01-10 10:49] MED LIST changes: -ACET-9525 PO; -DOCU-299 PO; -LACT-2; +MELA3TAB21 PO; +QUET25TA46 PO; -SULF-59 PO; +[UNRECOGNIZED DRUG - OTHER] PO
[2021-01-10] MEDS ORDERED: ISTR20TA PO (11:06)
[2021-01-10] MEDS ORDERED: LORA-476 IM (11:06)
[2021-01-10] MEDS ORDERED: BISA-213 RC (11:06)
[2021-01-10] MEDS ORDERED: MAGN400S60 PO (11:06)
[2021-01-10] MEDS ORDERED: MELA1TAB32 PO (11:06)
[2021-01-10] MEDS ORDERED: OPIC50CA PO (11:06)
[2021-01-10] MEDS ORDERED: CETI10SG1 PO (11:06)
[2021-01-10] MEDS ORDERED: NA P133E RC (11:06)
[2021-01-10] MEDS ORDERED: ESCI10TA PO (11:06)
[2021-01-10] MEDS ORDERED: ACET-2619 PO (11:06)
[2021-01-10] MEDS ORDERED: [UNRECOGNIZED DRUG - CODE] PO (11:06)
[2021-01-10] MEDS ORDERED: RISP0.5T3 PO (11:06)
[2021-01-10] MEDS ORDERED: RASA1TAB PO (11:06)
[2021-01-10] MEDS ORDERED: PIMA34CA PO (11:06)
[2021-01-10 11:56] LABS: BASOPHILS # (AUTO) 0.3 K/uL (0.00-0.22); BASOPHILS % (AUTO) 2.7 % (0.0-2.0); EOSINOPHILS # (AUTO) 0.1 K/uL (0-0.4); EOSINOPHILS % (AUTO) 0.9 % (0.0-4.0); HEMATOCRIT 44.6 % (36-48); HEMOGLOBIN 14.8 g/dL (12.0-16.0); LYMPHOCYTES # (AUTO) 1.7 K/uL (2.5-16.5); LYMPHOCYTES % (AUTO) 16.9 % (20.5-51.1); MEAN CORPUSCULAR HEMOGLOBIN 30 pg (27-31); MEAN CORPUSCULAR HGB CONC 33 g/dL (33-37); MEAN CORPUSCULAR VOLUME 89.5 fL (80-94); MONOCYTES # (AUTO) 0.8 K/uL (0.8-1.0); MONOCYTES % (AUTO) 7.6 % (1.7-9.3); NEUTROPHILS # (AUTO) 7.1 K/uL (1.8-7.7); NEUTROPHILS % (AUTO) 71.9 % (42.2-75.2); PLATELET COUNT (AUTO) 314 K/uL (140-450); RED BLOOD CELL COUNT(AUTO) 4.98 MIL/uL (4.20-5.40); RED CELL DISTRIBUTION WIDTH 14.2 % (11.6-13.7); WHITE BLOOD COUNT (AUTO) 9.9 K/uL (4.8-10.8)
[2021-01-10 12:13] LABS: APPEARANCE,URINE SLIGHTLY HAZY (CLEAR); BILIRUBIN,URINE NEGATIVE (NEGATIVE); BLOOD, URINE NEGATIVE (NEGATIVE); COLOR,URINE YELLOW (YELLOW); LEUKOCYTE ESTERASE ,URINE 1+ (NEGATIVE); NITRITE, URINE POSITIVE (NEGATIVE); UGLUCOSE NEGATIVE (NEGATIVE)
[2021-01-10 12:13] LABS: ALBUMIN 3.3 g/dL (3.4-5.0); ANION GAP 19.7 (8-16); CARBON DIOXIDE 24.8 mmol/L (21-32); POTASSIUM 4.5 mmol/L (3.5-5.1); TOTAL BILIRUBIN 0.5 mg/dL (0.0-1.0)
[2021-01-10 12:32] LABS: RBC,URINE 0-5 /HPF (0-5)
[2021-01-10] MEDS ORDERED: NACL 0.9% 1,000 ML IV ONE (12:55)
[2021-01-10] MEDS ORDERED: cefTRIAXone 2,000 MG in DEXTROSE 5% 100 ML IV ONE (13:35)
[2021-01-10] MEDS ORDERED: CEPH-588 PO (13:38)
[2021-01-10] MEDS ORDERED: cefTRIAXone 2,000 MG VIAL ONE (13:53)
[2021-01-10 18:30] VITALS: BP 120/70
== END 2021-01-10 18:30 | disposition home or self-care (01) ==
LOC: MED 10:49
DX: N39.0 Urinary tract infection, site not specified (principal); F03.90 Unspecified dementia, unspecified severity, without behavioral disturbance, psychotic disturbance, mood disturbance, and anxiety; G20 Parkinson's disease; I10 Essential (primary) hypertension; Z79.899 Other long term (current) drug therapy
CPT/HCPCS: 36415; 80053; 81001; 84146; 85025; 87086; 96365; 99285; J0696; J7030

== ENCOUNTER 2023-01-03 16:13 | Emergency (ER) | payer OTHER ==
[~2023-01-03] VITALS: Ht 162.6 cm; Wt 101.6 kg
[~2023-01-03 16:13] MED LIST changes: +ACET-2619 PO; +BISA-213 RC; +CARB-540 PO; +CEPH-588 PO; +CETI10SG1 PO; +ESCI10TA PO; +ISTR20TA PO; +LORA-476 IM; +MAGN400S60 PO; +MELA1TAB32 PO; +NA P133E RC; +OPIC50CA PO; +PIMA34CA PO; +RASA1TAB PO; +RISP0.5T3 PO
--- NOTE | 2023-01-03 16:37 | NUR ---
Patient BIBA to bed 3.
[2023-01-03 16:43] VITALS: BP 114/69; PULSE 80; RESP 20; TEMP 98; O2SAT 97
[2023-01-03 17:12] LABS: BASOPHILS # (AUTO) 0.1 K/uL (0.00-0.22); EOSINOPHILS # (AUTO) 0.1 K/uL (0-0.4); EOSINOPHILS % (AUTO) 0.7 % (0.0-4.0); HEMATOCRIT 44.5 % (36-48); HEMOGLOBIN 14.4 g/dL (12.0-16.0); LYMPHOCYTES % (AUTO) 29.3 % (20.5-51.1); MEAN CORPUSCULAR HEMOGLOBIN 29 pg (27-31); MEAN CORPUSCULAR HGB CONC 32 g/dL (33-37); MEAN CORPUSCULAR VOLUME 88.1 fL (80-94); MONOCYTES # (AUTO) 0.9 K/uL (0.8-1.0); MONOCYTES % (AUTO) 6.8 % (1.7-9.3); NEUTROPHILS # (AUTO) 8.6 K/uL (1.8-7.7); NEUTROPHILS % (AUTO) 62.2 % (42.2-75.2); PLATELET COUNT (AUTO) 256 K/uL (140-450); RED BLOOD CELL COUNT(AUTO) 5.05 MIL/uL (4.20-5.40); RED CELL DISTRIBUTION WIDTH 14.7 % (11.6-13.7); WHITE BLOOD COUNT (AUTO) 13.8 K/uL (4.8-10.8)
--- NOTE | 2023-01-03 17:20 | NUR ---
62 y/o female biba from [facility] for c/o tremors to right upper extremity. Per patient, she has had these tremors for the past 2 years. Per facility, tremors are new and started 1 hour prior to arrival. Patient has no history of seizures. Patient has pain to contracted left hand. Facility wants to rule out seizures. Blood sugar on scene was 115. Medical History: Parkinson's Disease, Polyneuropathy, HTN, HLD, UTI, Major Depressive Disease, Dementia, Psychosis NKDA
[2023-01-03 17:28] LABS: ALBUMIN 3.7 g/dL (3.4-5.0); CARBON DIOXIDE 28.5 mmol/L (21-32); CREATININE 0.7 mg/dL (0.6-1.3); POTASSIUM 4.5 mmol/L (3.5-5.1); TOTAL BILIRUBIN 0.6 mg/dL (0.0-1.0)
--- NOTE | 2023-01-03 17:38 | NUR ---
X-Ray at bedside.
--- NOTE | 2023-01-03 17:50 | NUR ---
Patient taken to CT via gurney.
--- NOTE | 2023-01-03 19:29 | NUR ---
# 5 FR Urinary catheter inserted utilizing sterile technique. Immediate return of 10 ml yellow urine noted. Urine sample collected and sent to lab. Pt tolerated procedure well.
--- NOTE | 2023-01-03 19:30 | NUR ---
Report given to MIKE Carl for transfer of care.
--- NOTE | 2023-01-03 19:35 | NUR ---
pt received on bed with g.20 iv right hand
--- NOTE | 2023-01-03 19:35 | NUR ---
pt resting on bed. not in distress. on monitor. call light within reach. pt instructed on how to use call light. pt returned demonstration. all needs met at this time. bed locked in lowest position. side rails x2 for safety.
[2023-01-03 20:19] LABS: APPEARANCE,URINE CLEAR (CLEAR); BILIRUBIN,URINE NEGATIVE (NEGATIVE); BLOOD, URINE NEGATIVE (NEGATIVE); COLOR,URINE YELLOW (YELLOW); LEUKOCYTE ESTERASE ,URINE NEGATIVE (NEGATIVE); NITRITE, URINE NEGATIVE (NEGATIVE); UGLUCOSE NEGATIVE (NEGATIVE)
--- NOTE | 2023-01-03 20:35 | NUR ---
new urine specimen sent to lab
--- NOTE | 2023-01-03 21:28 | NUR ---
ermd at bedside evaluating the pt.
--- NOTE | 2023-01-03 21:45 | NUR ---
talked to karen lee RN from [facility]. informed karen lee RN regarding discharge instruction and care. karen lee RN verbalized undertanding and state that they cannot get the pt. and [facility] should call for transport and bring the pt.
--- NOTE | 2023-01-03 21:49 | NUR ---
tried to call family(nathaniel) but no response
--- NOTE | 2023-01-03 22:23 | NUR ---
still waiting for transport
--- NOTE | 2023-01-04 | NUR ---
pt resting on bed. a/ox4 not in distress. on monitor. call light within reach. all needs met at this time. bed locked in lowest position. side rails x2 for safety.
--- NOTE | 2023-01-04 | NUR ---
OFFERED FOOD CRACKERS AND WATER. PT TOLERATED WELL.
--- NOTE | 2023-01-04 07:00 | NUR ---
offered food cracker and water. pt tolerated
--- NOTE | 2023-01-04 07:10 | NUR ---
bedside care done. change gown, underpad, and diaper
--- NOTE | 2023-01-04 07:33 | NUR ---
Pt report given to teddy ramon. teddy ramon verbalized understanding and no further question. Transfer of care at this time.
--- NOTE | 2023-01-04 07:33 | NUR ---
REPORT RECEIVED FROM SELVIN MCKEON. ASSUMED CARE AT THIS TIME
--- NOTE | 2023-01-04 07:40 | NUR ---
pt awake and at rest. respirations even and unlabored. on ekg monitor. bed at lowest position, bed rails upx2. seizure pads in place. call light within reach
--- NOTE | 2023-01-04 09:00 | NUR ---
Patient appears to be resting comfortably in bed. Vital Signs within normal limits. Respirations even and unlabored. Call light within reach.
[2023-01-04 10:06] VITALS: BP 121/70; PULSE 80; RESP 20; TEMP 98; O2SAT 97
--- NOTE | 2023-01-04 10:06 | NUR ---
Patient discharged with v/s stable. Written and verbal after care instructions given and explained. Patient verbalized understanding. Transport TO FACILITY. All questions addressed prior to discharge. Advised to follow up with PMD.
--- NOTE | 2023-01-04 10:07 | NUR ---
TRANSPORT HERE FOR POWDER LOADER BACK TO FACILITY.
== END 2023-01-04 10:06 | disposition home or self-care (01) ==
LOC: MED 16:13
DX: G21.19 Other drug induced secondary parkinsonism (principal); I10 Essential (primary) hypertension; F03.90 Unspecified dementia, unspecified severity, without behavioral disturbance, psychotic disturbance, mood disturbance, and anxiety; Z79.899 Other long term (current) drug therapy
CPT/HCPCS: 36415; 70450; 71045; 80053; 81003; 85025; 99285